=== PATIENT | male | born 2000 | race Hispanic/Latino ===

== ENCOUNTER 2024-02-20 15:52 | Emergency (ER) | payer OTHER ==
[~2024-02-20] VITALS: Ht 182.9 cm; Wt 100.7 kg
[2024-02-20] MEDS ORDERED: MELATONIN5 M2 PO (16:01)
[2024-02-20 17:40] VITALS: BP 134/77
== END 2024-02-20 17:40 | disposition home or self-care (01) ==
LOC: ED 15:52
DX: M79.604 Pain in right leg (principal); W50.0XXA Accidental hit or strike by another person, initial encounter; Y93.66 Activity, soccer
CPT/HCPCS: 73590; 73610; 99283